=== PATIENT | male | born 1985 | race Two or more races ===

== ENCOUNTER 2018-02-19 21:08 | Emergency (ER) | END 2018-02-20 00:28 | disposition home or self-care (01) ==

== ENCOUNTER 2018-03-12 12:02 | Emergency (ER) | END 2018-03-12 16:15 | disposition home or self-care (01) ==

== ENCOUNTER 2018-10-17 15:36 | Emergency (ER) | payer BC ==
[~2018-10-17] VITALS: Ht 177.8 cm; Wt 92.0 kg
[~2018-10-17 15:36] MED LIST: LORA-441 PO
[2018-10-17 15:42] VITALS: BP 138/73; PULSE 87; RESP 20; Ht 177.8 cm; Wt 92.0 kg
[2018-10-17] MEDS ORDERED: LORA1TAB PO (19:40)
[2018-10-17] MEDS ORDERED: LORAZEPAM 1 MG TAB PO ONE (20:00)
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
== END 2018-10-17 19:54 | disposition home or self-care (01) ==
LOC: FTE 15:36
DX: F41.9 Anxiety disorder, unspecified (principal); I10 Essential (primary) hypertension
CPT/HCPCS: 99283